=== PATIENT | male | born 1960 ===

== ENCOUNTER 2017-04-05 10:37 | Day surgery (SDC) | payer OTHER ==
--- NOTE | 2017-04-02 23:14 | HP ---
HISTORY AND PHYSICAL: DATE OF ADMISSION/SURGERY: 04/05/17 PROVIDER: Dr. Boggs.* (DICTATED BY CAROLYN STANLEY) REASON FOR VISIT: Left shoulder pain. HISTORY OF PRESENT ILLNESS: The patient is a 56-year-old male, right-hand dominant, a prisoner at [facility], who presents today for left shoulder pain after being diagnosed with a left massive rotator cuff tear. The patient was last seen by Dr. Boggs on 02/13/17. At that standpoint, he had elected to undergo a surgical repair and will undergo a left shoulder arthroscopic rotator cuff repair with arthroscopic decompression, possible distal clavicle resection, as well as possible biceps tenodesis. The patient was seen by his primary care doctor in the half-way and was cleared for surgery. He underwent an MRI of his shoulder in October of 2016. The patient states he has not had any recent changes. They have stopped his Motrin use and he states that he is having increased pain due to this with the pain severity of 10/10. PAST MEDICAL HISTORY: Noncontributory. PAST SURGICAL HISTORY: Back surgery, thoracic, unknown type, 2016. MEDICATIONS: Motrin p.r.n. SOCIAL HISTORY: No alcohol use, no tobacco use while incarcerated. No possibility of parole or a transfer in the near future. REVIEW OF SYSTEMS: General: No lightheadedness, dizziness, passing out. No recent weight changes, gain or losses. No difficulty with anesthesia. HEENT: No headaches, lightheadedness, dizziness, passing out. No history of seizures or epilepsy. Cardio: No murmurs, gallops, or rubs. No feeling of heart racing. No history of heart attack. Pulmonary: No difficulty with breathing. No cough. No history of COPD. GI: No nausea, vomiting, constipation, or diarrhea. Negative GERD. : No urinary frequency, urgency, and no history of urinary tract infections or sexually transmitted diseases. Musculoskeletal: Positive for left shoulder pain. Neurological: Positive for paresthesias in bilateral feet after recent back surgery. Hematologic: Negative for anemia. Negative for DVTs or PEs. Infectious Disease: No history of hepatitis. No history of HIV. No history of MRSA or VRE. PHYSICAL EXAMINATION GENERAL: Well appearing, in no acute distress. Alert and oriented. VITAL SIGNS: Height 5 feet 4 inches, weight 200 pounds. Blood pressure 124/72 , respirations 16, pain level 10/10. BMI 25.7. LUNGS: Clear to auscultation bilaterally. No crackles, rhonchi, or wheezes. CARDIAC: Regular rate and rhythm. No murmurs, rubs, or gallops. ABDOMEN: Soft, nontender, nondistended. Negative CVA tenderness bilaterally. MUSCULOSKELETAL: Upper extremity radial and ulnar pulses 2+ bilaterally. Decreased strength with abduction to 4/5 on the left, forward flexion of left shoulder to 100 degrees, adduction to 95, extension is 30, and internal rotation is 20 degrees, all active range of motion. Positive tenderness over the AC joint as well as the posterior shoulder. 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 Full range of motion of the wrist and elbow. Sensation is grossly intact in bilateral upper extremities. ASSESSMENT: Massive rotator cuff tear, left shoulder. PLAN: The patient has elected to undergo an arthroscopic rotator cuff repair with possible biceps tenodesis as well as possible decompression with distal clavicle resection on 04/05/17. The patient had no other questions or concerns. He has been cleared by his primary care doctor. We will follow up with him on the date of surgery. CAROLYN STANLEY See the version of H&P in [employer]. It has been extensively edited as compared to this version by myself, Dr. Boggs. [id number] #: [id number] MTDD
[~2017-04-05 10:37] MED LIST: Buffered Lidocaine 0.9% SYRIN* 5 ML/SYR SYRINGE INTRADERM ONE
[2017-04-05] MEDS ORDERED: ceFAZolin 2 GM PREMIX (*) 2 GM/50 ML BAG IVPB ONE (10:43)
[2017-04-05] MEDS ORDERED: EPINEPHRINE 1 MG/ML 1 ML VIAL ONE (11:17)
[2017-04-05] MEDS ORDERED: Midazolam* 1 MG/ML 2 ML VIAL (2 MG) ONE (12:56)
[2017-04-05] MEDS ORDERED: fentaNYL* 50 MCG/ML 2 ML VIAL (100 MCG VIAL) ONE ×2 (12:56→15:49)
[2017-04-05] MEDS ORDERED: Bupivacaine 0.25% SDV* 30 ML ONE ×2 (13:01→14:53)
[2017-04-05] MEDS ORDERED: Propofol* 10 MG/ML 20 ML BTL IV PUSH ONE (13:30)
[2017-04-05] MEDS ORDERED: Dexamethasone IV* 4 MG/ML 1 ML (4 MG) ONE (14:01)
[2017-04-05] MEDS ORDERED: Atracurium* 10 MG/ML 10 ML VIAL ONE (14:02)
[2017-04-05] MEDS ORDERED: DiMENhydriNATE IV* 50 MG/ML VIAL IV PUSH PRN (15:45)
[2017-04-05] MEDS ORDERED: HYDROcodone/ACETAMIN 5-325 MG* 1 TAB PO PRN (15:45)
[2017-04-05] MEDS ORDERED: fentaNYL* 50 MCG/ML 2 ML VIAL (100 MCG VIAL) IV PRN (15:45)
[2017-04-05] MEDS ORDERED: Scopolamine 1.5 mg* PATCH TRANSDERM PRN (15:45)
[2017-04-05] MEDS ORDERED: HYDROmorphone INJ* 1 MG/ML CARPUJECT SYRINGE IV PRN (15:45)
[2017-04-05] MEDS ORDERED: Ondansetron INJ* 2 MG/ML VIAL IV PRN (15:45)
[2017-04-05] MEDS ORDERED: Ketorolac INJ* 30 MG/ML 1 ML VIAL ONE (17:19)
[2017-04-05] MEDS ORDERED: Ondansetron INJ* 2 MG/ML VIAL ONE (17:20)
[2017-04-05] MEDS ORDERED: oxyCODONE/Acetamin 5/325 MG* TAB ONE (18:55)
[2017-04-05] MEDS: oxyCODONE/Acetamin 5/325 MG* TAB PO PRN ×2 (18:58→18:59)
[2017-04-05 19:01] VITALS: BP 122/80
[2017-04-08] MEDS ORDERED: Scopolamine PATCH Remove* 1 NOTE MISC PATCH OFF ONE (15:46)
--- NOTE | 2017-04-08 20:46 | OP ---
DATE OF OPERATION: 04/05/17 - [facility] DATE OF : 60. SURGEON: Den Boggs MD. THIRD OFFICER: CAROLYN Ryder. A physician assistant foreman was required for the length of the procedure for positioning, assistance with instrumentation and closure. ANESTHESIOLOGIST: Carrington Aquino MD. ANESTHESIA: General anesthesia, interscalene block regional anesthesia. PRE-OPERATIVE DIAGNOSES: 1. Left shoulder massive rotator cuff tendon tear, supraspinatus, infraspinatus. 2. Left shoulder subacromial impingement. 3. Left shoulder AC joint arthritis. 4. Left shoulder possible biceps tendinosis or superior labral tear. POST-OPERATIVE DIAGNOSES: 1. Left shoulder massive rotator cuff tendon tear, supraspinatus, infraspinatus. 2. Left shoulder subacromial impingement. 3. Left shoulder AC joint arthritis. 4. Left shoulder mild biceps tendinosis. 5. Left shoulder glenohumeral joint osteoarthritis, moderate. 6. Left shoulder capsulitis, stiffness. OPERATIVE PROCEDURE: 1. Left shoulder manipulation under anesthesia. 2. Left shoulder arthroscopic massive rotator cuff tendon repair, supraspinatus , infraspinatus, with a partial repair, single anchor and [id number] stitches. 3. Left shoulder arthroscopic subacromial decompression. 4. Left shoulder arthroscopic distal clavicle resection. 5. Left shoulder debridement including labrum with release of biceps. ANTIBIOTICS: Ancef 2 g IV. IV FLUIDS: 2300 cc crystalloid. COMPLICATIONS: None. ESTIMATED BLOOD LOSS: Minimal. SPECIMEN: None. IMPLANTS: 1. Mitek Andrea and Andrea Healix 5.5 mm triple loaded suture anchor. 2. 2 stitches were placed with #2 OrthoCord suture from [employer]. INDICATIONS FOR PROCEDURE: The patient is a 56-year-old man, right hand dominant, prisoner at the [facility], who presented to me in clinic with significant pain about the left shoulder, preventing sleep and significantly distressing him with activities of daily living, said he was not using his left shoulder. 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 After that neurosurgical procedure, the patient stopped having falls. However, his left shoulder had become painful with these falls and that persisted. The patient had an MRI prior to meeting me that showed massive rotator cuff tendon tear. His x-rays at first demonstrated an acromiohumeral distance of 2.1 mm, although x-ray at most recent clinic visit showed an acromiohumeral distance of 7.4 mm. The patient responded insufficiently to nonoperative management and opted for surgery, as detailed in my clinic notes and history and physical. We had discussed rotator cuff repair, reverse total shoulder arthroplasty, and superior capsular reconstruction. MRI showed retraction of the supraspinatus and anterior infraspinatus to the level of the glenoid. Superiorization of humeral head was present more on MRI than on x-ray as detailed above. Fatty infiltration of approximately 50% of the supra-spinatus was present on sagittal cuts, but no fatty atrophy of the infraspinatus and subscapularis was present. These made me think that the cuff might be repairable. Patient had a history of cigarette smoking but not in recent years, having stopped 2 years ago. We discussed risks and potential complications of surgery including bleeding, infection, nerve or blood vessel injury, blood clot, shoulder pain, stiffness, osteoarthritis, rotator cuff re-tear, and inability to repair rotator cuff given its chronic retracted nature. The patient opted for surgery. DESCRIPTION OF PROCEDURE: Patient signed operative consent in the preoperative holding. Operative extremity was marked in the preoperative holding. The patient underwent an interscalene block regional anesthetic performed by Dr. Aquino. The patient was taken back to the operating room and placed supine on the operating room table. The patient was sedated and intubated. The patient was placed in to the lateral decubitus position with the left shoulder up. Axillary roll placed. All bony prominences padded. Srivastava bag was hardened. Shoulder was placed in 15 pounds of longitudinal traction and the appropriate amount of abduction and forward flexion. With the patient still supine, prior to placement in the lateral decubitus position, I performed a mini time-out and an examination under anesthesia. The patient's preoperative range of motion and all has been limited by pain, with his most impressive range of motion being at his last clinic appointment. Therefore, I examined the shoulder under anesthesia. At first, the patient only had a 140 degrees of forward flexion and approximately 70 degrees of external and internal rotation. Working carefully, I performed a manipulation under anesthesia. There was palpable crepitus and popping with my manipulation. I was able to achieve 180 degrees of forward flexion, approximately 90 degrees of external rotation, and 80 degrees of internal rotation. After the manipulation under anesthesia, the patient was placed in to the lateral decubitus position as mentioned above. The left shoulder was prepped with ChloraPrep. The left shoulder was then draped. Surgical time-out was performed. The patient's left shoulder glenohumeral joint was entered with a spinal needle from posterior. 30 cc of normal saline were infused. A posterior glenohumeral joint portal was established using standard technique. I entered and arthroscoped. Diagnostic arthroscopy commenced. The patient's glenohumeral joint was significant for significant joint space narrowing. There were no focal articular articular cartilage defects, but the articular cartilage seemed somewhat diffusely thin. No clear large osteophytes encountered, but the space between the glenoid and the humeral head was moderately reduced. There was much fraying of the labrum as well as the biceps. There was a clear supraspinatus rotator cuff tendon tear as I could see through to the subacromial space without any problem. No loose bodies were encountered. An anterior glenohumeral joint portal was established under direct visualization. I entered an arthroscopic shaver and debrided some labrum and some synovitic tissue about the rotator cuff interval. I decided to treat the biceps tendon. That was because the biceps tendon had some diffuse fraying and the patient had an arthritic glenohumeral joint, which is often associated with a painful proximal biceps tendon, long head. I decided to just release the tendon rather than tenodesis. This is my standard protocol when I treat the biceps in an arthritic shoulder. I have discussed with the patient preoperatively the possibility of either releasing or releasing and tenodesing the biceps. I entered arthroscopic scissors from anteriorly and released the biceps tendon adjacent to its origin on the superior labrum. I removed instruments and then I placed a posterior subacromial portal and an anterior subacromial portal. Anteriorly, I placed a 7 mm Arthrex plastic cannula. I encountered much bursitis in the subacromial space. I created a lateral subacromial portal under direct visualization. There was a full-thickness tear of the supraspinatus and the anterior aspect of the infraspinatus. There was a small wisp of supraspinatus still present anteriorly although it was not robust. The retracted rotator cuff tendon was at more just medial to the level of the glenoid. I created a posterolateral and also an anterolateral subacromial portal to help with visualization and instrumentation. I freed up the rotator cuff tendon using a switching stick, arthroscopic shaver , and later a vapor cautery device. The rotator cuff tendon was not significantly mobile. In the course of my freeing up of the tendon, I placed two traction stitches using OrthoCord suture and a Aragon and [employer] equivalent of the Espresso device from [employer]. Even with two traction stitches in place, there was a limit to the mobility of the rotator cuff tendon. I was able to retract the tendon to the humeral head. I therefore decided to place a rotator cuff tendon anchor. I placed a 5.5 mm Healix anchor at the medial most margin of the greater tuberosity rotator cuff footprint. I then placed a horizontal mattress stitch in the tendon and tied it. With release of my traction through my traction stitches, the tendon loosened the rotator cuff anchor and retracted partially. It was clear to me that the tendon was too retracted for a stable rotator cuff repair, lateralizing the retracted tissue. No amount of freeing up of that tendon would create a stable repair that would not tear immediately postoperatively. I noted that tendon posteroinferiorly looked robust. It was able to be mobilized anteriorly just with a tendon grasper. Therefore, I decided on a partial repair. I decided to cover much of the superior humeral head with infraspinatus translated anteriorly. I placed a new 5.5 mm Mitek suture anchor in the humeral head in the more medial aspect of the greater tuberosity footprint. I then placed three horizontal mattress stitches in the infraspinatus tendon, which brought the infraspinatus anterior to the insertion site of what should have been supraspinatus tendon. I placed these horizontal stitches through the infraspinatus using an Taylor suture passer from [employer] I was very happy with this rotator cuff anchor and the anteriorization of the infraspinatus. This covered much of the supraspinatus footprint. It also significantly closed the gap between the subscapularis and the wisp of the supraspinatus and the infraspinatus tendon. I then decided to further anteriorize the infraspinatus tendon by placing side- to- side stitches between the wisp of supraspinatus tendon anteriorly and the infraspinatus posteriorly. I placed two [id number] stitches. I used OrthoCord #2 suture. I placed these stitches using an Taylor suture passer from [employer] and a Bird's beak suture passing device. This further closed down the defect in the rotator cuff tendon. This gave me a partial rotator tendon repair that appeared somewhat stable with rotation of the humeral head. It should be stated that prior to the rotator cuff tendon repair, I performed a subacromial decompression. This was done after my extensive subacromial bursectomy. For this subacromial decompression, I used an arthroscopic michelle placed through the lateral subacromial portal and debrided at least 6 mm of the undersurface of the anterior aspect of the acromion. After my rotator cuff tendon repair, I addressed the acromioclavicular joint. I debrided bursitic tissue about that joint with a vapor device and then I removed 8 mm of the distal end of the clavicle with an arthroscopic michelle. I removed instruments and fluid from subacromial space. I closed skin incisions with [id number] and 12 stitches using nylon 4-0 suture. Xeroform, 4 x 4's, ABDs, foam tape. Sling and abduction pillow. Patient was converted to spine, awakened and extubated, brought to the PACU. DISPOSITION: The patient will be in a sling day and night. We provided some instructions on moving his elbow, wrist, and fingers postoperatively to prevent stiffness. We recommended that the mcfp system provide narcotics for pain control. The patient should get aspirin for DVT prophylaxis. He should follow up in clinic in 10 to 14 days postoperatively for a wound check and removal of stitches. Given the adequacy of present physical therapy and the fact they were overwhelmed to get a partial repair of the patient's rotator cuff , I decided to hold off on physical therapy until I see the patient in the clinic for first postop clinic visit. [id number]/[facility] #: [id number] MARILY
== END 2017-04-05 19:25 | disposition home or self-care (01) ==
LOC: OR 10:37
PROVIDERS: ATTEND Orthopaedic Surgery
DX: S46.012A Strain of muscle(s) and tendon(s) of the rotator cuff of left shoulder, initial encounter (principal); W19.XXXA Unspecified fall, initial encounter; Y92.9 Unspecified place or not applicable; Z86.011 Personal history of benign neoplasm of the brain
CPT/HCPCS: A9270-GY; J0690; J1100; J1885; J2250; J2405; J2704; J3010